=== PATIENT | female | born 1945 | race Caucasian/White ===

== ENCOUNTER → 2016-08-16 | Outpatient (CLI) | payer MEDICARE ==
[~2016-08-16] MED LIST: ATEN25TA PO; FAMO1TAB37 PO; NIFE1TAB85 PO; [UNRECOGNIZED DRUG - CODE] PO
[2016-08-16 09:03] LABS: AUTOMATED NEUTROPHIL # 3.7 TH/MM3 (1.8-7.7); BASOPHIL # 0.1 TH/MM3 (0-0.2); BASOPHIL % 1.4 % (0.0-2.0); EOSINOPHIL # 0.1 TH/MM3 (0-0.4); EOSINOPHIL % 1.3 % (0.0-4.0); HEMATOCRIT 37.7 % (35.0-46.0); HEMO FLAGS DIFF FINAL; LYMPH % 21.4 % (9.0-44.0); LYMPHOCYTE # 1.2 TH/MM3 (1.0-4.8); MEAN CELL VOLUME 93.3 FL (80.0-100.0); MEAN CORPUSCULAR HEMOGLOBIN 30.7 PG (27.0-34.0); MONO % 9.8 % (0.0-8.0); NEUT % 66.1 % (16.0-70.0); PLATELET COUNT 206 TH/MM3 (150-450); RED BLOOD COUNT 4.05 MIL/MM3 (4.00-5.30); RED CELL DISTRIBUTION WIDTH 12.9 % (11.6-17.2); WHITE BLOOD COUNT 5.6 TH/MM3 (4.0-11.0)
[2016-08-16 10:50] LABS: ALKALINE PHOSPHATASE 101 U/L (45-117); ALT (GPT) 21 U/L (10-53); ANION GAP 7 MEQ/L (5-15); AST (GOT) 15 U/L (15-37); BICARBONATE 29.4 MEQ/L (21.0-32.0); BLOOD UREA NITROGEN 17 MG/DL (7-18); CHLORIDE 105 MEQ/L (98-107); GLOMERULAR FILTRATION RATE 76 ML/MIN (>89); GLUCOSE,FASTING 86 MG/DL (74-99); POTASSIUM 4.3 MEQ/L (3.5-5.1); SODIUM (NA) 141 MEQ/L (136-145); TOTAL BILIRUBIN ADULT 1.5 MG/DL (0.2-1.0)
== END ==
LOC: PLAB 07:11
PROVIDERS: ATTEND Family Medicine
DX: I10 Essential (primary) hypertension (principal)
CPT/HCPCS: 36415; 80053; 85025

== ENCOUNTER → 2016-10-18 | Outpatient (CLI) | payer MEDICARE | LOC: PLAB 09:11 | PROVIDERS: ATTEND Family Medicine | DX: R53.83 Other fatigue (principal) | CPT/HCPCS: 36415; 84439; 84443 ==

== ENCOUNTER → 2017-01-02 | Outpatient (CLI) | payer MEDICARE ==
[~2017-01-02] MED LIST changes: +CHOL1CAP34 PO; +FAMC125T PO; -FAMO1TAB37 PO; +FAMO20TA2 PO
[2017-01-02 09:17] LABS: AUTOMATED NEUTROPHIL # 4.4 TH/MM3 (1.8-7.7); BASOPHIL # 0.1 TH/MM3 (0-0.2); BASOPHIL % 0.9 % (0.0-2.0); EOSINOPHIL # 0.1 TH/MM3 (0-0.4); HEMATOCRIT 38.2 % (35.0-46.0); HEMO FLAGS DIFF FINAL; LYMPH % 18.5 % (9.0-44.0); LYMPHOCYTE # 1.2 TH/MM3 (1.0-4.8); MEAN CELL VOLUME 94.9 FL (80.0-100.0); MEAN CORPUSCULAR HEMOGLOBIN 31.4 PG (27.0-34.0); MEAN CORPUSCULAR HGB CONC 33.1 % (32.0-36.0); MONO % 10.7 % (0.0-8.0); NEUT % 68.9 % (16.0-70.0); PLATELET COUNT 192 TH/MM3 (150-450); RED BLOOD COUNT 4.03 MIL/MM3 (4.00-5.30); RED CELL DISTRIBUTION WIDTH 12.7 % (11.6-17.2); WHITE BLOOD COUNT 6.3 TH/MM3 (4.0-11.0)
[2017-01-02 09:37] LABS: ANION GAP 6 MEQ/L (5-15); AST (GOT) 18 U/L (15-37); BICARBONATE 27.5 MEQ/L (21.0-32.0); BLOOD UREA NITROGEN 20 MG/DL (7-18); CHLORIDE 103 MEQ/L (98-107); GLOMERULAR FILTRATION RATE 84 ML/MIN (>89); GLUCOSE,FASTING 85 MG/DL (74-99); POTASSIUM 4.2 MEQ/L (3.5-5.1); SODIUM (NA) 136 MEQ/L (136-145)
[2017-01-02 09:38] LABS: ALT (GPT) 25 U/L (10-53)
[2017-01-02 09:48] LABS: ALKALINE PHOSPHATASE 88 U/L (45-117); LDL CHOLESTEROL 94 MG/DL (0-99); TOTAL BILIRUBIN ADULT 1.7 MG/DL (0.2-1.0)
== END ==
LOC: PLAB 07:15
PROVIDERS: ATTEND Family Medicine
DX: R53.83 Other fatigue (principal); I10 Essential (primary) hypertension; E55.9 Vitamin D deficiency, unspecified
CPT/HCPCS: 36415; 80053; 80061; 82306; 84443; 85025

== ENCOUNTER → 2017-01-15 | Outpatient (CLI) | payer MEDICARE ==
[~2017-01-15] MED LIST changes: -[UNRECOGNIZED DRUG - CODE] PO
[2017-01-15 17:31] LABS: BLOOD, URINE SMALL (NEG); COMMENT (UR) CULT NOT INDICATED; CULTURE IF INDICATED CULT NOT INDICATED; GLUCOSE,URINE NEG (NEG); KETONE, URINE NEG (NEG); NITRITE,URINE NEG (NEG); SQUAMOUS EPITHELIAL CELL URINE <1 /hpf (0-5); URINE COLOR COLORLESS (YELLW/STRAW)
== END ==
LOC: PLAB 15:14
PROVIDERS: ATTEND Family Medicine
DX: R31.9 Hematuria, unspecified (principal); R35.0 Frequency of micturition
CPT/HCPCS: 81001

== ENCOUNTER → 2017-03-22 | Outpatient (CLI) | payer MEDICARE ==
[~2017-03-22] MED LIST changes: +CHOL5000 PO; +METO25TA3 PO
[2017-03-22 14:35] LABS: HEMATOCRIT 35.2 % (35.0-46.0); MEAN CELL VOLUME 94.2 FL (80.0-100.0); PLATELET COUNT 202 TH/MM3 (150-450); RED BLOOD COUNT 3.74 MIL/MM3 (4.00-5.30); RED CELL DISTRIBUTION WIDTH 12.8 % (11.6-17.2); REVIEW FLAG FINAL; WHITE BLOOD COUNT 5.8 TH/MM3 (4.0-11.0)
[2017-03-22 14:58] LABS: ALT (GPT) 28 U/L (10-53); ANION GAP 4 MEQ/L (5-15); AST (GOT) 16 U/L (15-37); BICARBONATE 33.6 MEQ/L (21.0-32.0); BLOOD UREA NITROGEN 28 MG/DL (7-18); CHLORIDE 101 MEQ/L (98-107); GLOMERULAR FILTRATION RATE 69 ML/MIN (>89); GLUCOSE,FASTING 100 MG/DL (74-99); POTASSIUM 4.4 MEQ/L (3.5-5.1); SODIUM (NA) 139 MEQ/L (136-145)
[2017-03-22 15:01] LABS: ALKALINE PHOSPHATASE 65 U/L (45-117); TOTAL BILIRUBIN ADULT 1.6 MG/DL (0.2-1.0)
== END ==
LOC: CLAB 14:16
PROVIDERS: ATTEND Nurse Practitioner Family
DX: E55.9 Vitamin D deficiency, unspecified (principal)
CPT/HCPCS: 36415; 80053; 82306; 85027

== ENCOUNTER → 2017-07-04 | Outpatient (CLI) | payer MEDICARE ==
[~2017-07-04] MED LIST changes: -CHOL1CAP34 PO; +ESTR0.62 VAGINAL; +FAMO1TAB73 PO; +GAVISUS2 PO; +SIME125T PO
[2017-07-04 17:34] LABS: BILIRUBIN, URINE NEG (NEG); BLOOD, URINE SMALL (NEG); GLUCOSE,URINE NEG (NEG); KETONE, URINE NEG (NEG); MUCUS URINE FEW /lpf (OCC); NITRITE,URINE NEG (NEG); SQUAMOUS EPITHELIAL CELL URINE <1 /hpf (0-5); URINE COLOR COLORLESS (YELLW/STRAW); URINE LEUKOCYTE ESTERASE NEG (NEG)
== END ==
LOC: PLAB 14:45
PROVIDERS: ATTEND Obstetrics & Gynecology Gynecology
DX: R31.21 Asymptomatic microscopic hematuria (principal)
CPT/HCPCS: 81001

== ENCOUNTER → 2017-07-24 | Outpatient (CLI) | payer MEDICARE ==
[2017-07-24 10:51] LABS: AUTOMATED NEUTROPHIL # 3.7 TH/MM3 (1.8-7.7); BASOPHIL # 0.1 TH/MM3 (0-0.2); EOSINOPHIL % 0.8 % (0.0-4.0); HEMATOCRIT 36.6 % (35.0-46.0); HEMOGLOBIN 12.4 GM/DL (11.6-15.3); LYMPH % 23.4 % (9.0-44.0); LYMPHOCYTE # 1.4 TH/MM3 (1.0-4.8); MEAN CELL VOLUME 92.1 FL (80.0-100.0); MEAN CORPUSCULAR HEMOGLOBIN 31.3 PG (27.0-34.0); MEAN PLATELET VOLUME 8.4 FL (7.0-11.0); MONO % 11.1 % (0.0-8.0); MONOCYTE # 0.6 TH/MM3 (0-0.9); NEUT % 63.7 % (16.0-70.0); PLATELET COUNT 204 TH/MM3 (150-450); RED BLOOD COUNT 3.97 MIL/MM3 (4.00-5.30); RED CELL DISTRIBUTION WIDTH 12.9 % (11.6-17.2); WHITE BLOOD COUNT 5.8 TH/MM3 (4.0-11.0)
[2017-07-24 11:03] LABS: ALBUMIN 3.7 GM/DL (3.4-5.0); AST (GOT) 17 U/L (15-37); BICARBONATE 31.3 MEQ/L (21.0-32.0); BLOOD UREA NITROGEN 25 MG/DL (7-18); CALCIUM 8.8 MG/DL (8.5-10.1); CHLORIDE 102 MEQ/L (98-107); CREATININE 0.89 MG/DL (0.50-1.00); GLOMERULAR FILTRATION RATE 63 ML/MIN (>89); GLUCOSE,FASTING 80 MG/DL (74-99); SODIUM (NA) 139 MEQ/L (136-145)
[2017-07-24 11:18] LABS: ALKALINE PHOSPHATASE 53 U/L (45-117); ALT (GPT) 23 U/L (10-53); FREE T4 1.22 NG/DL (0.76-1.46); TOTAL BILIRUBIN ADULT 1.5 MG/DL (0.2-1.0); TOTAL PROTEIN 7.4 GM/DL (6.4-8.2)
== END ==
LOC: PLAB 07:20
PROVIDERS: ATTEND Nurse Practitioner Family
DX: R53.83 Other fatigue (principal)
CPT/HCPCS: 36415; 80053; 84439; 84443; 85025

== ENCOUNTER 2017-11-04 13:53 | Emergency (ER) | payer MEDICARE ==
[2017-11-04 14:06] VITALS: BP 207/81; PULSE 57; RESP 15; TEMP 97.6; O2SAT 99
== END 2017-11-04 16:42 | disposition left against medical advice (07) ==
LOC: NED 13:53
DX: R42 Dizziness and giddiness (principal)
CPT/HCPCS: 99281

== ENCOUNTER 2017-11-05 13:02 | Emergency (ER) | payer MEDICARE ==
[~2017-11-05] VITALS: Ht 148.6 cm; Wt 97.6 kg
[2017-11-05 13:27] VITALS: BP 195/79; PULSE 59; RESP 16; TEMP 97.8; O2SAT 97
[2017-11-05] MEDS ORDERED: SODIUM CHLOR 0.9% 1000 ML INJ 1,000 ML IV ONE (13:47)
--- NOTE | 2017-11-05 14:02 | PD ---
HPI . Dizziness Chief Complaint: Dizziness Time Seen by Provider: 13:39 Travel History International Travel<30 days: No Contact w/Intl Traveler<30days: No Traveled to known affect area: No History of Present Illness HPI Patient presents with the chief complaint of weakness and fatigue. Onset was 3 weeks ago. Symptoms have been getting progressively worse. No modifying factors. Symptoms are mild. Associated symptoms include a mild pressure-like sensation in her head and feeling off balance. She states that she had a sore throat at the onset of her symptoms. She states that her grandson has recently been diagnosed with mono. She is curious as to whether or not she might have mono. In addition, she states that she had an outbreak of genital herpes a few weeks ago for the first time in 30 years. She is wondering if this may have something to do with her systemic complaints. This patient is on a beta-vin but states that she has been on the beta- vin for a long time. There have been no recent changes to her medications. PFSH Past Medical History Asthma: No Heart Rhythm Problems: Yes (sinus tach) Cancer: Yes (ovarian) Cardiovascular Problems: Yes High Cholesterol: Yes Chemotherapy: Yes (1990) Cerebrovascular Accident: Yes Diabetes: No Diminished Hearing: No Endocrine: Yes Gastrointestinal Disorders: Yes GERD: Yes Genitourinary: No Hepatitis: No Hiatal Hernia: Yes (GERD) Hypertension: Yes Medical other: Yes (ARTHRITIS) Musculoskeletal: No Neurologic: No Psychiatric: No Reproductive: Yes (GENITAL HERPES) Respiratory: No Immunizations Current: Yes Radiation Therapy: Yes Thyroid Disease: Yes Tetanus Vaccination: > 5 Years Influenza Vaccination: No ?: Not Menopausal: Yes Past Surgical History Appendectomy: Yes Cholecystectomy: Yes Gynecologic Surgery: Yes (TUBAL LIG., hysterectomy) Hysterectomy: Yes Oral Surgery: Yes (TONSILECTOMY) Pacemaker: No Tonsillectomy: Yes Other Surgery: Yes (OVERECTOMY/2ND LOOK SX) Social History Alcohol Use: No Tobacco Use: No Substance Use: No Allergies-Medications (Allergen,Severity, Reaction): Coded Allergies: amlodipine (Verified Allergy, Severe, Nausea/Vomiting, 11/05/17) ciprofloxacin (Verified Allergy, Severe, Dizziness, 11/05/17) lactose (Verified Allergy, Severe, GI CRAMPS, 11/05/17) lisinopril (Verified Allergy, Severe, throat swelling, 11/05/17) morphine (Verified Allergy, Severe, ITCH, 11/05/17) penicillin G (Verified Allergy, Severe, Rash, 11/05/17) acyclovir (Verified Allergy, Intermediate, rash, 11/05/17) azithromycin (Verified Allergy, Intermediate, rash, 11/05/17) milk (Verified Allergy, Unknown, 11/05/17) Reported Meds & Prescriptions Reported Meds & Active Scripts Active Procardia XL (Nifedipine) 30 Mg Tab 30 Mg PO DAILY Atenolol 25 Mg Tab 25 Mg PO BID Reported Gaviscon Extra Strength R Liq (Aluminum Hydroxide-Mag Carb Liq) 508-475 Mg/10 Ml Susp 10-20 Ml PO QID PRN Maximum 80 mL/24 hrs. Gas-X (Simethicone) 125 Mg Tab.chew 125 Chew PO DAILY Premarin Vaginal (Estrogens, Conjugated Vaginal) 0.625 Mg/Gm Cream 1 Gm VAGINAL HS PER PATIENT SHE USES 2 TIMES A WEEK. Pepcid (Famotidine) 40 Mg Tab 40 Mg PO BID Famciclovir 125 Mg Tab 125 Mg PO BID Review of Systems Except as stated in HPI: all other systems reviewed are Neg General / Constitutional: No: Fever, Chills Eyes: No: Diploplia, Blurred Vision HENT: Positive: Headaches, Lightheadedness Cardiovascular: No: Chest Pain or Discomfort Respiratory: No: Cough, Shortness of Breath Gastrointestinal: No: Nausea, Vomiting, Diarrhea Genitourinary: No: Urgency, Frequency, Dysuria Neurologic: Positive: Weakness, Dizziness Physical Exam Narrative GENERAL: Patient is sitting up on the side of the bed in no acute distress. SKIN: warm/dry. HEAD: Normocephalic. Atraumatic. EYES: Pupils equal and round. Extraocular movements are intact. ENT: Mucous membranes pink and moist. NECK: Supple. Full range of motion without pain.. CARDIOVASCULAR: Regular rate and rhythm. Heart sounds are normal. RESPIRATORY: No accessory muscle use. Clear to auscultation. Breath sounds equal bilaterally. GASTROINTESTINAL: Abdomen soft. Nontender. Bowel sounds present. Nondistended. MUSCULOSKELETAL: No obvious deformities. Normal muscle tone. NEUROLOGICAL: Awake and alert. No obvious cranial nerve deficits. Motor grossly within normal limits. Normal speech. PSYCHIATRIC: Appropriate mood and affect; insight and judgment normal. Data Data Last Documented VS Vital Signs Date Time Temp Pulse Resp B/P (MAP) Pulse Ox O2 Delivery O2 Flow Rate FiO2 11/05/17 13:41 Room Air 11/05/17 13:27 97.8 59 16 195/79 (117) 97 Orders Orders Electrocardiogram (11/05/17 13:47) Basic Metabolic Panel (Bmp) (11/05/17 13:47) Complete Blood Count With Diff (11/05/17 13:47) Magnesium (Mg) (11/05/17 13:47) Troponin I (11/05/17 13:47) Ct Brain W/O Iv Contrast(Rout) (11/05/17 13:47) Iv Access Insert/Monitor (11/05/17 13:47) Sodium Chlor 0.9% 1000 Ml Inj (Ns 1000 M (11/05/17 13:47) Monoscreen (11/05/17 13:47) Labs Laboratory Tests Test 11/05/17 14:25 White Blood Count 6.8 TH/MM3 Red Blood Count 3.89 MIL/MM3 Hemoglobin 12.4 GM/DL Hematocrit 36.7 % Mean Corpuscular Volume 94.3 FL Mean Corpuscular Hemoglobin 31.9 PG Mean Corpuscular Hemoglobin Concent 33.8 % Red Cell Distribution Width 11.9 % Platelet Count 201 TH/MM3 Mean Platelet Volume 7.7 FL Neutrophils (%) (Auto) 72.5 % Lymphocytes (%) (Auto) 17.4 % Monocytes (%) (Auto) 8.3 % Eosinophils (%) (Auto) 0.8 % Basophils (%) (Auto) 1.0 % Neutrophils # (Auto) 4.8 TH/MM3 Lymphocytes # (Auto) 1.2 TH/MM3 Monocytes # (Auto) 0.6 TH/MM3 Eosinophils # (Auto) 0.1 TH/MM3 Basophils # (Auto) 0.1 TH/MM3 CBC Comment DIFF FINAL Differential Comment MDM Medical Decision Making Medical Screen Exam Complete: Yes Emergency Medical Condition: Yes Interpretation(s) EKG shows a sinus bradycardia with no acute ischemic changes Differential Diagnosis Differential diagnosis of dizziness includes but is not limited to vertigo, dehydration, acute blood loss, sepsis, ACS Narrative Course This patient presents with a 3 week history of weakness, fatigue, dizziness. Her physical exam is unremarkable. Last Impressions Head CT 11/05/17 [id number] Signed Impressions: CONCLUSION: 1. No acute intracranial abnormality. 2. Mild sphenoid sinus mucosal disease. CBC Diagram 11/05/17 14:25 Her care is being turned over to the oncoming physician at this time. BMP, troponin and mono are pending. Diagnosis Primary Impression: Dizziness Disposition: 01 DISCHARGE HOME Condition: Stable Fanny Horn MD Nov 05, 2017 14:02
[2017-11-05 14:32] LABS: AUTOMATED NEUTROPHIL # 4.8 TH/MM3 (1.8-7.7); BASOPHIL # 0.1 TH/MM3 (0-0.2); EOSINOPHIL # 0.1 TH/MM3 (0-0.4); EOSINOPHIL % 0.8 % (0.0-4.0); HEMATOCRIT 36.7 % (35.0-46.0); HEMOGLOBIN 12.4 GM/DL (11.6-15.3); LYMPH % 17.4 % (9.0-44.0); LYMPHOCYTE # 1.2 TH/MM3 (1.0-4.8); MEAN CELL VOLUME 94.3 FL (80.0-100.0); MEAN CORPUSCULAR HEMOGLOBIN 31.9 PG (27.0-34.0); MEAN CORPUSCULAR HGB CONC 33.8 % (32.0-36.0); MEAN PLATELET VOLUME 7.7 FL (7.0-11.0); MONO % 8.3 % (0.0-8.0); MONOCYTE # 0.6 TH/MM3 (0-0.9); NEUT % 72.5 % (16.0-70.0); PLATELET COUNT 201 TH/MM3 (150-450); RED BLOOD COUNT 3.89 MIL/MM3 (4.00-5.30); RED CELL DISTRIBUTION WIDTH 11.9 % (11.6-17.2); WHITE BLOOD COUNT 6.8 TH/MM3 (4.0-11.0)
--- NOTE | 2017-11-05 14:43 | RADRPT ---
EXAM DATE: 11/05/2017 2:19 PM EDT AGE/SEX: 72 years / Female INDICATIONS: Lethargy, dizziness and head pressure. CLINICAL DATA: This is the patient's initial encounter. Patient reports that signs and symptoms have been present for 3 days and indicates a pain score of 4/10. MEDICAL/SURGICAL HISTORY: Hypertension. Carcinoma, ovarian. Gastroesophageal reflux disease. Appe ndectomy. Cholecystectomy. Hysterectomy. RADIATION DOSE: 47.71 CTDI (mGy) COMPARISON: No prior exams available for comparison. TECHNIQUE: CT of the head without contrast. Using automated exposure control and adjustment of the mA and/or kV according to patient size, radiation dose was kept as low as reasonably achievable to ob tain optimal diagnostic quality images. DICOM format image data is available electronically for revi ew and comparison. FINDINGS: Cerebrum: The ventricles are normal for age. No evidence of midline shift, mass lesion, hemorrhage o r acute infarction. No extraaxial fluid collections are seen. Posterior Fossa: The cerebellum and brainstem are intact. The 4th ventricle is midline. The cerebe llopontine angle is unremarkable. Extracranial: The visualized portion of the orbits is intact. Mild mucoperiosteal thickening in the sphenoid sinuses. Skull: The calvaria is intact. No evidence of skull fracture. CONCLUSION: 1. No acute intracranial abnormality. 2. Mild sphenoid sinus mucosal disease. Electronically signed by: Kyree Reid MD 11/05/2017 2:42 PM EDT
[2017-11-05 15:22] LABS: CHLORIDE 103 MEQ/L (98-107); SODIUM (NA) 141 MEQ/L (136-145)
[2017-11-05 15:23] VITALS: BP 163/76; PULSE 50; RESP 16; O2SAT 99
[2017-11-05 15:26] LABS: CALCIUM 9.1 MG/DL (8.5-10.1)
[2017-11-05 15:27] LABS: BICARBONATE 30.8 MEQ/L (21.0-32.0); BLOOD UREA NITROGEN 27 MG/DL (7-18); GLUCOSE,RANDOM 101 MG/DL (74-106); MAGNESIUM 2.4 MG/DL (1.5-2.5)
[2017-11-05 15:30] LABS: CREATININE 0.92 MG/DL (0.50-1.00); GLOMERULAR FILTRATION RATE 60 ML/MIN (>89)
[2017-11-05 15:35] LABS: TROPONIN I LESS THAN 0.02 NG/ML (0.02-0.05)
[2017-11-05 16:18] VITALS: BP 152/69; PULSE 75; RESP 18; O2SAT 99
--- NOTE | 2017-11-05 16:34 | PD ---
Data Data Last Documented VS Vital Signs Date Time Temp Pulse Resp B/P (MAP) Pulse Ox O2 Delivery O2 Flow Rate FiO2 11/05/17 16:18 75 18 152/69 (96) 99 Room Air 11/05/17 13:27 97.8 Orders Orders Electrocardiogram (11/05/17 13:47) Basic Metabolic Panel (Bmp) (11/05/17 13:47) Complete Blood Count With Diff (11/05/17 13:47) Magnesium (Mg) (11/05/17 13:47) Troponin I (11/05/17 13:47) Ct Brain W/O Iv Contrast(Rout) (11/05/17 13:47) Iv Access Insert/Monitor (11/05/17 13:47) Sodium Chlor 0.9% 1000 Ml Inj (Ns 1000 M (11/05/17 13:47) Monoscreen (11/05/17 13:47) Labs Laboratory Tests Test 11/05/17 14:25 White Blood Count 6.8 TH/MM3 Red Blood Count 3.89 MIL/MM3 Hemoglobin 12.4 GM/DL Hematocrit 36.7 % Mean Corpuscular Volume 94.3 FL Mean Corpuscular Hemoglobin 31.9 PG Mean Corpuscular Hemoglobin Concent 33.8 % Red Cell Distribution Width 11.9 % Platelet Count 201 TH/MM3 Mean Platelet Volume 7.7 FL Neutrophils (%) (Auto) 72.5 % Lymphocytes (%) (Auto) 17.4 % Monocytes (%) (Auto) 8.3 % Eosinophils (%) (Auto) 0.8 % Basophils (%) (Auto) 1.0 % Neutrophils # (Auto) 4.8 TH/MM3 Lymphocytes # (Auto) 1.2 TH/MM3 Monocytes # (Auto) 0.6 TH/MM3 Eosinophils # (Auto) 0.1 TH/MM3 Basophils # (Auto) 0.1 TH/MM3 CBC Comment DIFF FINAL Differential Comment Blood Urea Nitrogen 27 MG/DL Creatinine 0.92 MG/DL Random Glucose 101 MG/DL Calcium Level 9.1 MG/DL Magnesium Level 2.4 MG/DL Sodium Level 141 MEQ/L Potassium Level 4.3 MEQ/L Chloride Level 103 MEQ/L Carbon Dioxide Level 30.8 MEQ/L Anion Gap 7 MEQ/L Estimat Glomerular Filtration Rate 60 ML/MIN Troponin I LESS THAN 0.02 NG/ML MDM Supervised Visit with ANDREA: No Narrative Course This case is checked out to me by Dr. Horn I have reviewed the entirety of the workup with the patient. Brain CT is negative for acute problem. CBC is normal Metabolic studies could suggest minor dehydration with mild azotemia. She did receive a liter of normal saline IV On recheck she feels improved. She would like to go home. Monospot is pending but is not going to filter changer. This was carried up to the main hospital and could be some time and she does not want to wait on it any further. She will call back later to find out if it was positive. Patient did have some lightheadedness and unsteadiness on her feet. I have recommended walker use. She declines that and says she might get a cane. Recommend she call her primary physician tomorrow for follow-up. No acute neurologic deficit on exam Diagnosis Primary Impression: Dizziness Additional Impression: Mild dehydration Additional Instruction: The patient was advised to follow up with their physician and return if they worsen. Recommend walker usage Med/Other Pt SpecificInfo: Other Disposition: 01 DISCHARGE HOME Condition: Stable Edi Martini MD Nov 05, 2017 16:34
[2017-11-05 17:55] LABS: MONOSCREEN NEG (NEG)
--- NOTE | 2017-11-06 21:33 | EKG ---
Date Performed: 11/05/2017 Time Performed: 14:02:32 PTAGE: 72 years EKG: SINUS BRADYCARDIA POSSIBLE RIGHT VENTRICULAR CONDUCTION DELAY BORDERLINE ECG PREVIOUS TRACING : 01/20/2014 18.07 Since the previous tracing, no significant change noted DOCTOR: Charmaine Jones Interpretating Date/Time 11/06/2017 21:32:25
== END 2017-11-05 17:49 | disposition home or self-care (01) ==
LOC: PHED 13:02
DX: E86.0 Dehydration (principal); R00.1 Bradycardia, unspecified; I10 Essential (primary) hypertension
CPT/HCPCS: 70450; 80048; 83735; 84484; 85025; 86308; 93005; 96360; 99285; J7030